=== PATIENT | female | born 1945 | race Hispanic/Latino ===

== ENCOUNTER 2018-03-12 14:44 | Emergency (ER) | payer MEDICARE ==
[2018-03-12 15:37] LABS: BASOPHILS % (AUTO) 0.2 % (0.0-5.0); EOSINOPHILS % (AUTO) 0.1 % (0.0-8.0); HEMATOCRIT 38.7 % (36-48); LYMPHOCYTES % (AUTO) 14.8 % (21.0-51.0); MEAN CORPUSCULAR HEMOGLOBIN 30.9 pg (27.0-33.0); MEAN CORPUSCULAR VOLUME 88.2 fL (79-99); NEUTROPHILS % (AUTO) 83.9 % (40.0-77.0); PLATELET COUNT (AUTO) 302 K/uL (130-400); RED BLOOD CELL COUNT(AUTO) 4.39 MIL/uL (4.00-5.50); RED CELL DISTRIBUTION WIDTH 12.7 % (11.0-15.5); WHITE BLOOD COUNT (AUTO) 7.8 K/uL (4.8-10.8)
[2018-03-12] MEDS ORDERED: ACETAMINOPHEN 325 MG TAB ONE (15:40)
[2018-03-12] MEDS ORDERED: CEFTRIAXONE SODIUM 1 GM ONE (15:40)
[2018-03-12] MEDS ORDERED: SODIUM CHLORIDE 0.9% 1000ML 1,000 ML IV ONE (15:40)
[2018-03-12] MEDS ORDERED: IPRATROPIUM/ALBUTEROL SULFATE 3 ML SOLUTION IH ONE (15:42)
[2018-03-12 15:48] LABS: POTASSIUM 3.5 mmol/L (3.5-5.1)
[2018-03-12 15:49] LABS: INR 0.99 (0.85-1.15); PARTIAL THROMBOPLASTIN TIME 29.2 SEC (26.3-35.5); PROTHROMBIN TIME 10.4 SEC (9.6-11.6)
[2018-03-12 15:52] LABS: ALBUMIN 3.7 g/dL (3.5-5.0); BILIRUBIN,TOTAL 0.9 mg/dL (0.2-1.0); TOTAL PROTEIN, SERUM 7.2 g/dL (6.0-8.3)
[2018-03-12 16:02] LABS: APPEARANCE,URINE Clear (CLEAR); BILIRUBIN,URINE Negative (NEGATIVE); COLOR,URINE Yellow (YELLOW); GLUCOSE, URINE (UA) Negative (NEGATIVE); KETONES,URINE Negative (NEGATIVE); LEUKOCYTE ESTERASE ,URINE Negative (NEGATIVE); NITRATE,URINE Negative (NEGATIVE); OCCULT BLOOD,URINE Negative (NEGATIVE); PH,URINE >=9.0 (5.0-8.0); PROTEIN,URINE Negative (NEGATIVE)
[2018-03-12 16:19] LABS: BACTERIA,URINE Rare /HPF (None Seen); RBC,URINE 0-1 /HPF (0-1); SQUAMOUS EPITHELIAL CELL,UR Rare /HPF (0-2); WBC,URINE 0-1 /HPF (0-1)
== END 2018-03-12 17:21 | disposition home or self-care (01) ==
LOC: EDH 14:44
DX: J20.9 Acute bronchitis, unspecified (principal); I10 Essential (primary) hypertension; E78.5 Hyperlipidemia, unspecified; E07.9 Disorder of thyroid, unspecified
CPT/HCPCS: 36415; 71045; 80053; 81001; 82550; 84484; 85025; 85610; 85730; 87040 ×2; 87804 ×2; 93005; 94640; 96374; 99285; J0696; J7030

== ENCOUNTER 2019-05-11 12:20 | Emergency (ER) | payer MEDICARE ==
[2019-05-11 13:11] LABS: BASOPHILS % (AUTO) 0.4 % (0.0-5.0); EOSINOPHILS % (AUTO) 1.1 % (0.0-8.0); HEMATOCRIT 43.9 % (36-48); LYMPHOCYTES % (AUTO) 26.5 % (21.0-51.0); MEAN CORPUSCULAR HEMOGLOBIN 30.7 pg (27.0-33.0); MEAN CORPUSCULAR HGB CONC 34.2 g/dL (32.0-36.0); MEAN CORPUSCULAR VOLUME 89.9 fL (79-99); MONOCYTES % (AUTO) 6.2 % (3.0-13.0); NEUTROPHILS % (AUTO) 65.8 % (40.0-77.0); PLATELET COUNT (AUTO) 287 K/uL (130-400); RED BLOOD CELL COUNT(AUTO) 4.89 MIL/uL (4.00-5.50); RED CELL DISTRIBUTION WIDTH 13.3 % (11.0-15.5); WHITE BLOOD COUNT (AUTO) 8.4 K/uL (4.8-10.8)
[2019-05-11 13:16] LABS: CREATININE 0.9 mg/dL (0.5-1.5); POTASSIUM 4.4 mmol/L (3.5-5.1)
[2019-05-11 14:24] LABS: APPEARANCE,URINE Clear (CLEAR); BILIRUBIN,URINE Negative (NEGATIVE); COLOR,URINE Yellow (YELLOW); GLUCOSE, URINE (UA) Negative (NEGATIVE); KETONES,URINE Negative (NEGATIVE); LEUKOCYTE ESTERASE ,URINE Trace (NEGATIVE); NITRATE,URINE Negative (NEGATIVE); OCCULT BLOOD,URINE Large (NEGATIVE); PH,URINE 6.5 (5.0-8.0); PROTEIN,URINE Negative (NEGATIVE); UROBILINOGEN,URINE 0.2 mg/dL (0.2-1.0)
[2019-05-11 14:37] LABS: BACTERIA,URINE None Seen /HPF (None Seen); WBC,URINE 0-1 /HPF (0-1)
== END 2019-05-11 15:02 | disposition home or self-care (01) ==
LOC: EDH 12:20
DX: N95.0 Postmenopausal bleeding (principal); D25.9 Leiomyoma of uterus, unspecified; E78.5 Hyperlipidemia, unspecified; I10 Essential (primary) hypertension; E07.9 Disorder of thyroid, unspecified
CPT/HCPCS: 36415; 76856; 80048; 81001; 85025

== ENCOUNTER 2020-03-08 09:41 | Emergency (ER) | payer MEDICARE ==
[2020-03-08] MEDS ORDERED: ONDANSETRON 4 MG TABLET ONE (10:19)
[2020-03-08] MEDS ORDERED: MECLIZINE HCL 25 MG TABLET ONE (10:19)
== END 2020-03-08 10:45 | disposition home or self-care (01) ==
LOC: EDH 09:41
DX: H81.10 Benign paroxysmal vertigo, unspecified ear (principal); I10 Essential (primary) hypertension; E78.5 Hyperlipidemia, unspecified; R05 Cough; E07.9 Disorder of thyroid, unspecified; Z87.442 Personal history of urinary calculi
CPT/HCPCS: 99283; Q0162

== ENCOUNTER 2024-02-12 13:46 | Emergency (ER) | payer OTHER, MEDICARE ==
[~2024-02-12] VITALS: Ht 167.6 cm; Wt 81.6 kg
[2024-02-12 15:19] LABS: APPEARANCE,URINE CLEAR (CLEAR); BILIRUBIN,URINE NEGATIVE (NEGATIVE); COLOR,URINE LIGHT-YELLOW (YELLOW); GLUCOSE, URINE (UA) NEGATIVE (NEGATIVE); KETONES,URINE NEGATIVE (NEGATIVE); LEUKOCYTE ESTERASE ,URINE NEGATIVE Leu/uL (NEGATIVE); NITRATE,URINE NEGATIVE (NEGATIVE); OCCULT BLOOD,URINE SMALL (NEGATIVE); PROTEIN,URINE NEGATIVE (NEGATIVE); UROBILINOGEN,URINE 0.2 mg/dL (0.2-1.0)
[2024-02-12 15:20] LABS: ADD UA MICROSCOPIC YES
[2024-02-12 15:22] LABS: MUCUS,URINE RARE LPF (None Seen); SQUAMOUS EPITHELIAL CELL,UR RARE /HPF (0-2)
[2024-02-12 15:24] LABS: BASOPHILS # (AUTO) 0.04 K/uL (0.00-0.20); BASOPHILS % (AUTO) 0.4 % (0.0-5.0); EOSINOPHILS # (AUTO) 0.11 K/uL (0.00-0.70); EOSINOPHILS % (AUTO) 1.1 % (0.0-8.0); HEMATOCRIT 42.7 % (36-48); IMMATURE GRANULOCYTE ABSOLUTE 0.04 K/uL (0-1); LYMPHOCYTES # (AUTO) 2.6 K/uL (1.0-4.8); LYMPHOCYTES % (AUTO) 25.7 % (21.0-51.0); MEAN CORPUSCULAR HEMOGLOBIN 30.7 pg (27.0-33.0); MEAN CORPUSCULAR VOLUME 90.3 fL (79-99); MONOCYTES # (AUTO) 0.6 K/uL (0.1-1.0); MONOCYTES % (AUTO) 5.6 % (3.0-13.0); NEUTROPHILS # (AUTO) 6.8 K/uL (1.8-7.7); NEUTROPHILS % (AUTO) 66.8 % (40.0-77.0); PLATELET COUNT (AUTO) 263 K/uL (130-400); RED BLOOD CELL COUNT(AUTO) 4.73 MIL/uL (4.00-5.50); RED CELL DISTRIBUTION WIDTH 12.8 % (11.0-15.5); WHITE BLOOD COUNT (AUTO) 10.1 K/uL (4.8-10.8)
[2024-02-12 15:44] LABS: CREATININE 0.7 mg/dL (0.5-1.0); POTASSIUM 4.7 mmol/L (3.5-5.1)
[2024-02-12] MEDS: 0.9% NACL 500ML IV.SOLN 500 ML IV ONE (15:45)
[2024-02-12] MEDS: ONDANSETRON 4MG INJ IVP ONE (15:46)
[2024-02-12 16:37] VITALS: BP 129/59; PULSE 72; RESP 17; O2SAT 98
[2024-02-12] MEDS: MECLIZINE HCL 25 MG TABLET PO ONE (17:10)
[2024-02-12] MEDS ORDERED: MECL-302 PO (17:21)
== END 2024-02-12 17:28 | disposition home or self-care (01) ==
LOC: EDH 13:46
DX: R42 Dizziness and giddiness (principal); E78.00 Pure hypercholesterolemia, unspecified; F03.90 Unspecified dementia, unspecified severity, without behavioral disturbance, psychotic disturbance, mood disturbance, and anxiety; I10 Essential (primary) hypertension
CPT/HCPCS: 99285; 96374; 70450; 96361; 84484; 80048; 85025; 81001; 36415; 93005; J7040; J2405

== ENCOUNTER 2025-09-26 21:17 | Emergency (ER) | payer MEDICARE, MEDICAID ==
[~2025-09-26] VITALS: Ht 167.6 cm; Wt 81.6 kg
[~2025-09-26 21:17] MED LIST: MECL-302 PO
--- NOTE | 2025-09-26 21:48 | ERN ---
ED Note History of Present Illness Stated Complaint: RECTAL BLEEDING Chief Complaint: Hemorrhoids Time Seen by MD: 21:21 Time Seen by Midlevel: 21:21 Dictation: The patient is a 80-year-old female with a history of hypertension who presents to the emergency department with complaints of rectal bleeding and some constipation. Patient also reports lower abdominal pain. Reports she has hemorrhoids. Patient denies any nausea or vomiting. Denies any fevers, reports last bowel movement was this morning. Patient reports that when she wipes she sees bright red blood. Denies any use of blood thinners Allergies: Coded Allergies: No Known Allergies (Unverified Allergy, Unknown, 05/11/19) Home Meds Active Scripts Meclizine HCl (Meclizine HCl) 25 Mg Tablet, 25 MG PO TID for vertigo for 10 Days, #30 TAB 0 Refills Prov:SEBAS HEMPHILL MD 02/12/24 Past Medical History Past Medical History: Dementia, High Cholesterol, Hypertension Surgical History: None RN Note Reviewed/Agreed w/PFSH: Yes Review of System Dictation Constitutional: Negative for fever,chills, and weight loss Eyes: Negative for injury, pain,redness, and discharge ENT: Negative for injury,pain or swelling Cardiovascular: Negative for chest pain, palpitations, and edema Respiratory: Negative for shortness of breath, cough, and wheezing, Abdomen/GI: Negative for abdominal pain, nausea, vomiting, diarrhea, positive for constipation Back: Negative for injury and pain : Negative for injury, and discharge positive for bleeding MS/Extremity: Negative for injury and deformity Skin: Negative for rash, and discoloration Neuro: Negative for headache, weakness, numbness, tingling, and seizure Psych: Negative for suicide ideation, homicidal ideation, and hallucinations Initial Vital Sign VS Vital Signs Date Time Temp Pulse Resp B/P (MAP) Pulse Ox O2 Delivery O2 Flow Rate FiO2 09/26/25 21:19 97.2 87 20 141/97 97 Room Air 09/26/25 21:27 0 21 Physical Exam Dictation Vital Signs reviewed General Appearance: Alert, oriented x 3, no acute distress, well developed, nour ished. Head and Face: non-traumatic. Eyes: PERRL, pink conjunctivas, eyelid no trauma, anterior chamber with arcus senilis. Ears: Pinnas intact and no signs of trauma or erythema ear canals clear and no discharge TM no erythema Nose: No discharge, no bleeding. Oropharynx: Mouth normal, tongue pink. pharynx clear,no erythema, tonsils no exudates, no abscesses noted, mucous memb lópez moist Neck: Supple, non-tender, no thyromegaly, no masses, no JVD, no bruits Breast:Deferred Chest:No tenderness, no crepitus, no paradoxical movement, no retractions Lungs:Clear, well-ventilated, symmetric, no rales, no wheezing, no rhonchi, no s tridor, good breath sounds bilaterally Heart: Regular rate, regular rhythm, no murmur, no gallops Vascular: no peripheral edema, Abdomen: Soft, positive bowel sounds, nondistended, no guarding, nontender, no rebound, no masses no hepatomegaly, no splenomegaly, no Paredes's sign, no hernias. Rectal: Small hemorrhoid to 1 oclock, no active bleeding Genital: Bleeding noted in vaginal canal, scant bleeding, no lesions identified Neurological: Normal speech, motor function intact, sensory function intact Musculoskeletal: Neck nontender, full range of motion, back nontender, full range of motion, Extremities: nontender, full range of motion Skin: Color pink, dry, no turgor, no rash, no lacerations, no abrasions, no contusions. Lymphatic: Deferred Results (Laboratory/Radiology) Laboratory/Radiology Laboratory Tests Test 09/26/25 21:50 09/26/25 23:05 White Blood Count 7.4 K/uL (4.8-10.8) Red Blood Count 4.56 MIL/uL (4.00-5.50) Hemoglobin 13.8 g/dL (12.0-16.0) Hematocrit 40.6 % (36-48) Mean Corpuscular Volume 89.0 fL (79-99) Mean Corpuscular Hemoglobin 30.3 pg (27.0-33.0) Mean Corpuscular Hemoglobin Concent 34.0 g/dL (32.0-36.0) Red Cell Distribution Width 13.1 % (11.0-15.5) Platelet Count 277 K/uL (130-400) Mean Platelet Volume 8.9 fL (7.5-10.5) Immature Granulocyte % (Auto) 0.3 % (0-1) Neutrophils (%) (Auto) 58.3 % (40.0-77.0) Lymphocytes (%) (Auto) 31.2 % (21.0-51.0) Monocytes (%) (Auto) 7.0 % (3.0-13.0) Eosinophils (%) (Auto) 2.7 % (0.0-8.0) Basophils (%) (Auto) 0.5 % (0.0-5.0) Neutrophils # (Auto) 4.3 K/uL (1.8-7.7) Lymphocytes # (Auto) 2.3 K/uL (1.0-4.8) Monocytes # (Auto) 0.5 K/uL (0.1-1.0) Eosinophils # (Auto) 0.20 K/uL (0.00-0.70) Basophils # (Auto) 0.04 K/uL (0.00-0.20) Absolute Immature Granulocyte (auto 0.02 K/uL (0-1) Nucleated Red Blood Cells 0.0 % (0.0-0.19) Sodium Level 145 mmol/L (136-145) Potassium Level 3.2 mmol/L (3.5-5.1) L Chloride Level 107 mmol/L (101-111) Carbon Dioxide Level 29 mmol/L (21-32) Blood Urea Nitrogen 11 mg/dL (7-18) Creatinine 1.0 mg/dL (0.5-1.0) Glomerular Filtration Rate Calc 58 mL/min (>90) Random Glucose 103 mg/dL (70-105) Total Calcium 7.6 mg/dL (8.5-10.1) L Urine Color COLORLESS (YELLOW) Urine Appearance CLEAR (CLEAR) Urine pH 7.0 (5.0-8.0) Urine Specific [place] 1.003 (1.001-1.031) Urine Protein NEGATIVE mg/dL (NEGATIVE) Urine Glucose (UA) NEGATIVE mg/dL (NEGATIVE) Urine Ketones NEGATIVE mg/dL (NEGATIVE) Urine Occult Blood LARGE (NEGATIVE) H Urine Nitrate NEGATIVE (NEGATIVE) Urine Bilirubin NEGATIVE mg/dL (NEGATIVE) Urine Urobilinogen 0.2 mg/dL (0.2-1.0) Urine Leukocyte Esterase 25 Sadaf/uL (NEGATIVE) H Urine RBC 2-5 /HPF (0-1) H Urine WBC 2-5 /HPF (0-1) H Urine Squamous Epithelial Cells RARE /HPF (0-2) Urine Bacteria RARE /HPF (None Seen) REASON: vaginal bleeding ORDERING PHYSICIAN: DENISE SAPP PROCEDURE: PELVCOMP - US PELVIC NON-OB COMP EXAM: US Pelvis, Complete. CLINICAL HISTORY: vaginal bleeding TECHNIQUE: Transabdominal pelvic ultrasound (complete) with image documentation. COMPARISON: None provided. FINDINGS: UTERUS: The uterus measures approximately 7.7 x 4.1 x 6.4 cm. Multiple echogenic foci with posterior acoustic shadowing are noted within the myometrium. A calcified lesion along the posterior uterine wall, mid-uterine body measures approximately 3.7 x 1.7 x 2.6 cm. Additional calcified foci are seen measuring approximately 0.7 x 0.3 cm and along the anterior uterine wall measuring approximately 0.6 x 0.7 cm. These findings are most consistent with calcified uterine fibroids. ENDOMETRIUM: The endometrium measures approximately 14 mm in thickness and appears heterogeneous. RIGHT OVARY: The right ovary measures approximately 3.9 x 3.3 x 2.6 cm. Normal Doppler flow is demonstrated. No focal ovarian mass. LEFT OVARY: The left ovary measures approximately 2.9 x 1.8 x 2.8 cm. Normal Doppler flow is demonstrated. No focal ovarian mass. CUL DE SAC: No free fluid is identified. LIMITATIONS: The examination is limited due to the transabdominal technique, suboptimal bladder distension, and overlying bowel gas.IMPRESSION: 1. Thickened, heterogeneous endometrium measuring 14 mm. A transvaginal pelvic ultrasound is recommended for better evaluation of the endometrium. 2. Multiple uterine fibroids, largest measuring 3.7 x 1.7 x 2.6 cm along the posterior uterine wall. /[place] REASON: constipation ORDERING PHYSICIAN: DENISE SAPP PROCEDURE: ABD 1VW - ABD 1VW EXAM: CR Abdomen, 2 View. CLINICAL HISTORY: constipation COMPARISON: None provided. FINDINGS: BOWEL: The bowel gas pattern is within normal limits. PERITONEUM/SOFT TISSUES: No free air evident. No pathologic appearing calcification. Calcification overlying the pelvis is presumed to reflect a fibroid. BONES: No aggressive appearing osseous lesion seen. IMPRESSION: The bowel gas pattern is within normal limits. /[place] Labs Reviewed?: Yes ED Course ED Course Orders Procedure Category Date Status Time Cbc With Differential LAB 09/26/25 Complete 21:42 Urinalysis Profile LAB 09/26/25 Complete 21:42 Acetaminophen 325 Tab PHA 09/26/25 Complete (Tylenol 325mg Tab 22:00 Basic Metabolic Panel LAB 09/26/25 Complete 21:42 Pelvic Exam Set Up CPOE 09/26/25 Transmitted (Er) 21:42 Us Pelvic Non-Ob Comp US 09/26/25 Resulted 21:42 Abd 1vw RAD 09/26/25 Resulted 21:42 Potassium Bicarb/Cit PHA 09/27/25 Complete Ac 25meq (K-Lyte Ta 00:00 Current Medications Medications (Trade) Dose Ordered Sig/[place] Route PRN Reason Start Time Stop Time Status Last Admin Dose Admin Acetaminophen (TYLenol 325MG TAB) 650 mg ONCE ONCE PO 09/26/25 22:00 09/26/25 22:01 DC 09/26/25 22:13 Potassium Bicarbonate (K-Lyte Tablet Eff 25 Meq Tablet.eff) 25 meq ONCE ONCE PO 09/27/25 00:00 09/27/25 00:01 DC 09/26/25 23:53 Vital Signs Date Time Temp Pulse Resp B/P (MAP) Pulse Ox O2 Delivery O2 Flow Rate FiO2 09/26/25 23:28 97.9 88 20 136/68 97 Room Air* 0 21 09/26/25 21:27 97.9 86 18 142/96 98 Room Air* 0 21 09/26/25 21:19 97.2 87 20 141/97 97 Room Air Medical Decision Making MDM The patient is a 80-year-old female with a history of hypertension who presents to the emergency department with complaints of rectal bleeding and some constipation. Patient also reports lower abdominal pain. Reports she has hemorrhoids. Patient denies any nausea or vomiting. Denies any fevers, reports last bowel movement was this morning. Patient reports that when she wipes she sees bright red blood. Denies any use of blood thinners CBC showed no leukocytosis, no anemia, chemistry showed mild hypokalemia, urinalysis showed mild leukocyte esterase. Ultrasound revealed uterine fibroids. Patient with minimal bleeding. We will be referred to OBGYN. Patient with no bleeding to rectum. It was bleeding from vaginal area. Patient otherwise in no acute distress, stable vital signs. Patient will be discharged to follow up with PCP. Differential diagnosis: UTI, rectal bleeding, hemorrhoids, anemia, constipation, vaginal bleeding Need for hospitalization: Patient does not meet criteria for hospitalization. There are no social concerns with this patient. DX & DISP Disposition: Discharge Departure Impression: Primary Impression: Vaginal bleeding Additional Impressions: Uterine fibroid, UTI (urinary tract infection), Hypokalemia Condition: Stable Scripts Cephalexin Monohydrate (Keflex) 500 Mg Cap 500 MG PO BID for 5 Days, #10 CAP Prov: DENISE SAPP 09/27/25 Additional Instructions: We will Need to follow up with the OBGYN for the abnormal vaginal bleeding. Please take your medications as prescribed. If you develop severe bleeding, dizziness or if anything worsens please return to ER. FOLLOW-UP WITH PRIMARY CARE PROVIDER IN 1 TO 2 DAYS. TAKE MEDICATIONS DIRECTED HERE IN THE EMERGENCY ROOM. OKAY TO CONTINUE HOME MEDICATIONS UNLESS OTHERWISE DISCUSSED DURING YOUR VISIT IN THE EMERGENCY ROOM TODAY. RETURN TO YOUR NEAREST EMERGENCY ROOM IF SYMPTOMS WORSEN OR IF THERE IS NO IMPROVEMENT. CALL 911 IF YOU NEED IMMEDIATE ASSISTANCE. TAKE TYLENOL CLZA-TXC-WPFONIA NEEDED AND IF NO CONTRAINDICATIONS ARE PRESENT. INCREASE ORAL HYDRATION. A WOUND CULTURE OR URINE CULTURE WAS ORDERED HERE IN THE EMERGENCY ROOM DEPARTMENT PLEASE FOLLOW-UP WITH PRIMARY CARE PROVIDER AND ADVISE THEM TO GET REPEAT PORTS FROM OUR FACILITY. IF YOU HAD ANY LOS WRAP/SPLINTS THAT WERE APPLIED HERE, PLEASE DO NOT REMOVE THEM UNTIL YOU SEE YOUR PRIMARY CARE OR SPECIALTY. Referrals: ANA MARIA BENSON MD (PCP) GENE VILLAVICENCIO MD Time of Disposition: 00:27 I have reviewed the case, and I agree with, Diagnosis and Plan DENIES SAPP Sep 26, 2025 21:48
[2025-09-26 21:56] LABS: IMMATURE GRANULOCYTE ABSOLUTE 0.02 K/uL (0-1); NUCLEATED RED BLOOD CELLS 0.0 % (0.0-0.19); PLATELET COUNT (AUTO) 277 K/uL (130-400); RED BLOOD CELL COUNT(AUTO) 4.56 MIL/uL (4.00-5.50); RED CELL DISTRIBUTION WIDTH 13.1 % (11.0-15.5); WHITE BLOOD COUNT (AUTO) 7.4 K/uL (4.8-10.8)
[2025-09-26 22:04] LABS: CREATININE 1.0 mg/dL (0.5-1.0); GLOMERULAR FILTR. RATE CALC 58.0 mL/min (>90); GLUCOSE,RANDOM 103.0 mg/dL (70-105); SODIUM SERUM 145.0 mmol/L (136-145); UREA NITROGEN, BLOOD 11.0 mg/dL (7-18)
--- NOTE | 2025-09-26 23:14 | HMCIMG ---
EXAM: CR Abdomen, 2 View. CLINICAL HISTORY: constipation COMPARISON: None provided. FINDINGS: BOWEL: The bowel gas pattern is within normal limits. PERITONEUM/SOFT TISSUES: No free air evident. No pathologic appearing calcification. Calcification overlying the pelvis is presumed to reflect a fibroid. BONES: No aggressive appearing osseous lesion seen. IMPRESSION: The bowel gas pattern is within normal limits. /[place]
[2025-09-26 23:36] LABS: APPEARANCE,URINE CLEAR (CLEAR); GLUCOSE, URINE (UA) NEGATIVE (NEGATIVE); LEUKOCYTE ESTERASE ,URINE 25 Leu/uL (NEGATIVE); NITRATE,URINE NEGATIVE (NEGATIVE); OCCULT BLOOD,URINE LARGE (NEGATIVE)
[2025-09-26 23:38] LABS: ADD UA MICROSCOPIC YES
[2025-09-26 23:40] LABS: SQUAMOUS EPITHELIAL CELL,UR RARE /HPF (0-2)
--- NOTE | 2025-09-27 00:03 | HMCIMG ---
EXAM: US Pelvis, Complete. CLINICAL HISTORY: vaginal bleeding TECHNIQUE: Transabdominal pelvic ultrasound (complete) with image documentation. COMPARISON: None provided. FINDINGS: UTERUS: The uterus measures approximately 7.7 x 4.1 x 6.4 cm. Multiple echogenic foci with posterior acoustic shadowing are noted within the myometrium. A calcified lesion along the posterior uterine wall, mid-uterine body measures approximately 3.7 x 1.7 x 2.6 cm. Additional calcified foci are seen measuring approximately 0.7 x 0.3 cm and along the anterior uterine wall measuring approximately 0.6 x 0.7 cm. These findings are most consistent with calcified uterine fibroids. ENDOMETRIUM: The endometrium measures approximately 14 mm in thickness and appears heterogeneous. RIGHT OVARY: The right ovary measures approximately 3.9 x 3.3 x 2.6 cm. Normal Doppler flow is demonstrated. No focal ovarian mass. LEFT OVARY: The left ovary measures approximately 2.9 x 1.8 x 2.8 cm. Normal Doppler flow is demonstrated. No focal ovarian mass. CUL DE SAC: No free fluid is identified. LIMITATIONS: The examination is limited due to the transabdominal technique, suboptimal bladder distension, and overlying bowel gas.IMPRESSION: 1. Thickened, heterogeneous endometrium measuring 14 mm. A transvaginal pelvic ultrasound is recommended for better evaluation of the endometrium. 2. Multiple uterine fibroids, largest measuring 3.7 x 1.7 x 2.6 cm along the posterior uterine wall. /[place]
[2025-09-27] MEDS ORDERED: CEPH500B PO (00:28)
[2025-09-27 00:31] VITALS: BP 126/72; PULSE 87; RESP 19; TEMP 97.8; O2SAT 96
== END 2025-09-27 00:45 | disposition home or self-care (01) ==
LOC: EDH 21:17
DX: D25.9 Leiomyoma of uterus, unspecified (principal); N39.0 Urinary tract infection, site not specified; E87.6 Hypokalemia; K62.5 Hemorrhage of anus and rectum; E78.00 Pure hypercholesterolemia, unspecified; F03.90 Unspecified dementia, unspecified severity, without behavioral disturbance, psychotic disturbance, mood disturbance, and anxiety; I10 Essential (primary) hypertension
CPT/HCPCS: 36415; 74018; 76856; 80048; 81001; 85025; 99284